=== PATIENT | male | born 1970 | race Two or more races ===

== ENCOUNTER 2022-08-12 13:42 | Outpatient (CLI) | payer OTHER, SELFPAY ==
[2022-08-12 17:42] LABS: Cholesterol* 175 mg/dL (90-199); HDL Cholesterol* 44 mg/dL (>=40); LDL Cholesterol Calculated 94 mg/dL (<100); Triglycerides* 187 mg/dL (40-149)
== END 2022-08-12 13:43 | disposition home or self-care (01) ==
LOC: LONREF 13:43
PROVIDERS: Visit Provider Family Medicine
DX: I42.8 Other cardiomyopathies (principal)
CPT/HCPCS: 80061

== ENCOUNTER 2023-08-17 09:05 | Outpatient (CLI) | payer OTHER, SELFPAY | END 2023-08-17 09:06 | disposition home or self-care (01) | LOC: NFLDREF 08-19 13:45 | PROVIDERS: PCP Family Medicine; Referring Provider Family Medicine; Visit Provider Family Medicine | DX: I10 Essential (primary) hypertension (principal); E78.5 Hyperlipidemia, unspecified; Z12.5 Encounter for screening for malignant neoplasm of prostate | CPT/HCPCS: 80048; 80061; 84153 ==

== ENCOUNTER 2023-11-13 07:48 | Outpatient (CLI) | payer OTHER, SELFPAY | END 2023-11-13 07:49 | disposition home or self-care (01) | LOC: RAD 07:49 | PROVIDERS: PCP Family Medicine; Visit Provider Family Medicine | DX: I42.8 Other cardiomyopathies (principal); I51.7 Cardiomegaly; I50.9 Heart failure, unspecified | CPT/HCPCS: 93306 ==

== ENCOUNTER 2025-09-29 14:16 | Emergency (ER) | payer OTHER, SELFPAY ==
[2025-09-29 14:26] VITALS: BP 161/122; PULSE 86; RESP 14; TEMP 36.2; O2SAT 97; BMI 31.9
--- NOTE | 2025-09-29 16:54 | ED_ITS ---
HPI - General Adult General Date Seen: 09/29/25 Chief complaint: Unspecified Complaint, Adult Stated complaint: shortness of breath/ hasn't been able to take meds Time Seen by Provider: 09/29/25 16:53 History of Present Illness HPI narrative: 55 yo M with a h/o HTN, dyslipidema, CHF, CAD, Most recent records in the [facility] system are visit with Dr. Beatty in September 2023. Per that record he was on aspirin 81 mg, atorvastatin 10 mg, carvedilol 12.5 mg p.o. BT a, lisinopril 5 mg daily. He apparently has a history of cardiomyopathy and CHF dating back to 2018. He had an angiogram that showed some early coronary artery disease, but cardiomyopathy was thought to be ?nonspecific?. EF was around 30% in 2018 but echo in 2021 showed improved EF up to 50-55%. He apparently used to have a as400 consultant [facility]. His primary care provider is Dr. Beatty through the [facility]. He had formally seen Dr. Beatty in the [facility] but has not seen him since Dr. Beatty had to move from [place] to [facility] because the [place] [facility] was closed. The patient ran out of his all of his heart medications a few months ago and has noted for the past few weeks he has had gradual progression of dyspnea, in particular dyspnea on exertion and also little bit of bloating in his abdomen and peripheral edema in his legs. He called Dr. Coburn's office to get an appointment for med refill. He was told that he can not get in for checkup for several months but at least will get in on October 20 for a med refill visit. However he feels like his shortness of breath has been getting worse lately and that he cannot wait until October to get his meds refilled so he came here to the ER. He has not been having any chest pain. No cough. No fever. He does not know if he has been gaining weight lately. He does not have a scale. He does not know his baseline weight. Now that he is here in the ER he had to wait in [place] because the very busy Thursday afternoon and he says that he is eager for discharge because his is at home alone with his 3 children. He does not want stay for any further workup. He just wants to get his meds refilled. He does not remember all the names of his meds. He says he does not really understand his medical condition and he says that his understanding is limited because he can not read very well. He has dyslexia. Per [facility] medical record his last visit with [facility] was in 2021 52 y.o. male with a past medical history significant for the following: * Nonischemic cardiomyopathy * LVEF 26% on MRI 09/2019 * Nonischemic scar pattern * LVEF 45-50% 12/20/2019 * Hypertension * Hyperlipidemia * Coronary artery disease * Coronary angiogram 09/2019 with only mild CAD, not obstructive ? Eugenio is a pleasant 52 y.o. male with the above past medical history who presents to the clinic for routine follow up. He was last seen by Esperanza White on 01/30/22 at which time he was feeling overall well although he had run out of his medications 3wks prior and had noted some increased abdominal pressure and belching. His medications were refilled and repeat echocardiogram was ordered to be reviewed at this visit (pending at time of evaluation). ASSESSMENT: 1. Nonischemic cardiomyopathy with chronic HF with borderline preserved EF, presumably hypertensive cardiomyopathy * Volume status: euvolemic * Estimated dry weight: (lbs): 195# Current weight: (lbs): * Wt Readings from Last 1 Encounters: * 07/22/22 * 88 kg (194 lb) * ? * NYHA Class I * LVEF 45-50% --> now 50-55% on repeat echo (results returned after clinic) * Meds: * Beta fatimah: carvedilol 12.5 mg BID * PHIL/ARB/Entresto: lisinopril 2.5 mg ? 2. Hypertension -controlled today -continue carvedilol 12.5 mg BID, lisinopril 2.5 mg ? 3. Hyperlipidemia -repeat FLP at earliest convenience. Patient does have mild CAD; thus there is an indication for high intensity statin. Patient has been reticent to adjustments in the past, noting his most recent lipid panel was when he was off his statin. Will repeat, likely increase atorvastatin to 40mg daily if patient is agreeable -continue atorvastatin 10mg daily for now. ? 4. Coronary artery disease -symptomatically stable -aspirin 81 mg, carvedilol 12.5 mg BID, lisinopril 2.5 mg Related Data Home Medications ?Medication ?Instructions ?Recorded ?Confirmed aspirin 81 mg tablet,delayed 81 mg PO QDAY 03/02/23 release (Adult Aspirin Regimen) Previous Rx's ?Medication ?Instructions ?Recorded atorvastatin 10 mg tablet 10 mg PO QHS #90 tabs lisinopril 5 mg tablet 5 mg PO QDAY #90 tabs carvedilol 12.5 mg tablet 12.5 mg PO BID #180 tabs 01/09 atorvastatin 20 mg tablet 20 mg PO QHS #30 tabs lisinopril 10 mg tablet 10 mg PO QDAY #30 tabs 02/22 aspirin 81 mg capsule 81 mg PO DAILY #21 caps 09/16 03/10 atorvastatin 10 mg tablet 10 mg PO DAILY #21 tabs 09/16 03/10 carvedilol 12.5 mg tablet 12.5 mg PO BID #42 tabs 09/16 03/10 furosemide 20 mg tablet (Lasix) 20 mg PO DAILY #7 tabs 09/29/25 lisinopril 10 mg tablet 10 mg PO DAILY #21 tabs 09/16 03/10 Allergies Allergy/AdvReac Type Severity Reaction Status Date / Time amoxicillin Allergy Severe Anaphylaxis Verified 09/29/25 14:25 Penicillins Allergy Severe Anaphylaxis Verified 09/29/25 14:25 [facility] Medical History Cat scratch fever (~2018) ?A28.1 - Cat-scratch disease (ICD-10) Surgical History H/O hand surgery (~2018) ?Z98.890 - Other specified postprocedural states (ICD-10) Social History Smoking Status: Never smoker How often do you have a drink containing alcohol: monthly or less AUDIT-C Alcohol total score: 1 Non-prescribed substance use: former substance user Exam Narrative: Exam Narrative: Constitutional: Appears well-developed and well-nourished. Alert. Conversant. Non toxic. HENT: Head: Atraumatic. Nose: Nose normal. Mouth/Throat: Oral mucosa is clear and moist. no trismus. Pharynx normal. Eyes: Conjunctivae normal. EOM normal. Pupils equal, round, and reactive to light. No scleral icterus. Neck: Normal range of motion. Neck supple. No tracheal deviation present. No JVD Cardiovascular: Normal rate, regular rhythm. No gallop. No friction rub. No murmur heard. Symmetric radial artery pulses Pulmonary/Chest: Effort normal. No stridor. No respiratory distress. Lungs are clear. No wheezes. No rales. No rhonchi . No tenderness. Abdominal: Soft.No distension. No mass. No tenderness. No rebound. No guarding. Musculoskeletal: RUE: Normal range of motion. No tenderness. No deformity LUE: Normal range of motion. No tenderness. No deformity RLE: Normal range of motion. Trace ankle and baltazar edema. No tenderness. No deformity LLE: Normal range of motion. Trace ankle and baltazar edema. No tenderness. No deformity Neurological: Alert and oriented to person, place, and time. Normal strength. CN II-VII intact. No sensory deficit. GCS eye subscore is 4. GCS verbal subscore is 5. GCS motor subscore is 6. Normal coordination Skin: Skin is warm and dry. No rash noted. No pallor. Normal capillary refill. Psychiatric: Normal mood. Normal affect. Polite. Const: Vital Signs, click to edit/add: Vital Signs - 24 hr 09/29/25 14:26 09/29/25 17:41 Temperature 97.1 F L Pulse Rate [Pulse Oximeter] 86 90 Respiratory Rate 14 18 Blood Pressure [Ri ght Upper Arm] 161/122 H 165/121 H Pulse Oximetry 97 98 Oxygen Delivery Me thod Room Air Room Air Course Vital Signs Vital signs: Initial Vital Signs Temperature 97.1 F L 09/29/25 14: Temperature Source Temporal Artery Scan 09/29/25 14:26 Pulse Rate 86 09/29/25 14:26 Pulse Rhythm Regular 09/29/25 14: Respiratory Rate 14 09/29/25 14:26 Blood Pressure 161/122 H 09/29/25 14:26 Blood Pressure Mean 135 H 09/29/25 14: Blood Pressure Position Sitting 09/29/25 14:26 Pulse Oximetry 97 09/29/25 14:26 Oxygen Delivery Method Room Air 09/29/25 14:26 Vital Signs Temperature 97.1 F L 09/29/25 14:26 Pulse Rate 86 09/29/25 14:26 Respiratory Rate 14 09/29/25 14:26 Blood Pressure 161/122 H 09/29/25 14:26 Pulse Oximetry 97 09/29/25 14:26 Oxygen Delivery Method Room Air 09/29/25 14:26 Temperature 97.1 F L 09/29/25 14:26 Pulse Rate 90 09/29/25 17:41 Respiratory Rate 18 09/29/25 17:41 Blood Pressure 165/121 H 09/29/25 17:41 Pulse Oximetry 98 09/29/25 17:41 Oxygen Delivery Method Room Air 09/29/25 17:41 Medical Decision Making MDM Narrative Medical decision making narrative: Pleasant 55-year-old gentleman with a complex past history notable for nonischemic cardiomyopathy that is apparently related to FX after a infection from a cat bite. It sounds like his EF was down to about 30% several years ago and then had been back up to about 50-55% on an echo 3 years ago. It does not sound like he has had any recent cardiology follow-up. I do not see any office visits in the [facility] system with Dr. Beatty since September 2023. He had been managed on medications but it sounds like he ran out of his meds a few months ago and has now been having symptoms of dyspnea on exertion and peripheral edema for the past few weeks. He presents to the ER today because he is not able to get in with his primary care provider for a med refill in timely fashion. It sounds like he has been getting slowly worse over time that there is not really an acute decompensation that occurred today. Based on the patient's history and exam of concerned that he may be developing more trouble with cardiomyopathy and is probably developing symptoms of CHF. Discussed with him that I would advise workup with EKG, chest x-ray, BMP, troponin, hemoglobin. We can accomplish all of the above workup here in the ER today. He also will probably need another echocardiogram to evaluate his valves and ejection fraction, which I cannot do today but could be done soon in the outpatient clinic. Patient is expressing his frustration after waiting in the ER lobby and does not want to stay for any workup here. He and I had a discussion; I would like to evaluate evaluate many of the potential causes for his symptoms such as renal failure, CHF, acute coronary syndrome, pleural effusions, anemia without some workup. He declines my recommended workup here in the ER today. If we are not going to do workup here in the ER today, we can at least try to get him refills on his meds in an effort to try to get his symptoms better. I wrote refill prescriptions for a 21 day supply of his aspirin, statin, carvedilol, lisinopril. This will cover him until his scheduled appointment with Dr. Beatty on 10/20. I will also give him a 7 day prescription for furosemide 20 mg daily. This hopefully will help with his peripheral edema and difficulty breathing. He is cautioned to return to the ER if he does have any worsening symptoms. Blood pressure readings are elevated today. This will be rechecked when he follows up with his primary care provider. Hopefully will come down once he reinitiate his medication. Discharge Plan Discharge Clinical Impression: Dyspnea on exertion, Edema, peripheral Patient Disposition: Home, Self-Care Condition: Stable Instructions: Dyspnea (ED), Edema (ED) Additional Instructions: As we discussed, with your symptoms of shortness of breath and swelling in her legs I am concerned the ER having another problem with the muscle of your heart. I am concerned the you may have another episode of congestive heart failure. I recommend that you get labs, EKG, and x-ray here in the ER today but you are declining that workup. Therefore, I will at least give you a refill of your regular prescriptions (aspirin, atorvastatin, carvedilol, lisinopril). I also recommend that you do a 7 day course of furosemide. This medicine is a water pill that will help your kidneys put out more liquid and help reduce the swelling in your legs. It is very important for you to follow-up with your regular doctor by October 20. Call the clinic again today to see if you can move up your appointment. If you have worsening trouble breathing, chest pain, or any concerns, please come back to the ER right away. Prescriptions: New aspirin 81 mg capsule 81 mg PO DAILY Qty: 21 0RF atorvastatin 10 mg tablet 10 mg PO DAILY Qty: 21 0RF carvedilol 12.5 mg tablet 12.5 mg PO BID Qty: 42 0RF Rx Instructions: must administer with a meal/food lisinopril 10 mg tablet 10 mg PO DAILY Qty: 21 0RF furosemide [Lasix] 20 mg tablet 20 mg PO DAILY Qty: 7 0RF No Action aspirin [Adult Aspirin Regimen] 81 mg tablet,delayed release (DR/EC) 81 mg PO QDAY atorvastatin 10 mg tablet 10 mg PO QHS Qty: 90 0RF lisinopril 5 mg tablet 5 mg PO QDAY Qty: 90 2RF carvedilol 12.5 mg tablet 12.5 mg PO BID Qty: 180 1RF Rx Instructions: must administer with a meal/food atorvastatin 20 mg tablet 20 mg PO QHS Qty: 30 0RF lisinopril 10 mg tablet 10 mg PO QDAY Qty: 30 0RF Follow Up/Referrals: Geovanni Coburn MD [Primary Care Provider, Family Practice] Stand Alone Forms: MyHealth Info Instructions
[2025-09-29 17:41] VITALS: BP 165/121; PULSE 90; RESP 18; O2SAT 98
== END 2025-09-29 17:42 | disposition home or self-care (01) ==
PROVIDERS: Emergency Provider Emergency Medicine; PCP Family Medicine
DX: R06.09 Other forms of dyspnea (principal); R60.0 Localized edema
CPT/HCPCS: 99283; 99284

== ENCOUNTER 2025-10-20 15:18 | Outpatient (CLI) | payer OTHER, SELFPAY | END 2025-10-20 15:19 | disposition home or self-care (01) | PROVIDERS: PCP Family Medicine; Visit Provider Family Medicine | DX: I50.9 Heart failure, unspecified (principal); E78.2 Mixed hyperlipidemia; Z12.5 Encounter for screening for malignant neoplasm of prostate | CPT/HCPCS: 80053; 80061; 84443; G0103 ==

== ENCOUNTER 2025-10-30 08:03 | Outpatient (CLI) | payer OTHER, SELFPAY | END 2025-10-30 08:04 | disposition home or self-care (01) | LOC: RAD 08:04 | PROVIDERS: PCP Family Medicine; Visit Provider Family Medicine | DX: I50.9 Heart failure, unspecified (principal); I51.7 Cardiomegaly; I10 Essential (primary) hypertension | CPT/HCPCS: 93306 ==